=== PATIENT | female | born 1960 | race Caucasian/White ===

== ENCOUNTER → 2016-05-23 | Day surgery (SDC) | payer BC, OTHER ==
[~2016-05-23] VITALS: Ht 152.4 cm; Wt 59.9 kg
[~2016-05-23] MED LIST: ASPIRIN 81 MG CHEW (CHILDREN'S ASA) PO ONE; HEParin (CATH LAB) 1,000 ML IV ONE; HEParin (CATH LAB) 2,000 ML IV ONE; HEParin 1000 UNIT/ML (10ML VIAL) FOR BOLUS IV PRN; HEParin 1000 UNIT/ML (10ML VIAL) FOR BOLUS ONE; HEParin DRIP 25000 UNIT/500ML 500 ML IV ONE; HEParin DRIP 25000 UNIT/500ML 500 ML IV SCH; LIDOCAINE 1% INJ 20 ML (XYLOCAINE) VIAL ONE; MIDAZOLAM 5 MG/5 ML (VERSED) VIAL ONE; NS IV 1000 ML 1,000 ML IV SCH; NS IV 1000 ML 1,000 ML ONE; PATIENT MAY USE OWN MEDS, ALL PO SCH; RT-ALBUTEROL SULF 2.5 MG/3 ML PRE-MIX VIAL INH STA; RT-ALBUTEROL/IPRATROPIUM 3 ML (DUONEB) VIAL INH ONE; RX-NITROGLYCERIN 0.4 MG TAB BTL 25'S SL ONE; fentaNYL INJECTION 100 MCG/2 ML AMP ONE
[2016-05-23 15:14] LABS: BASOPHILS % (AUTO) 0 % (0-10); EOSINOPHILS % (AUTO) 0 % (0-10); LYMPHOCYTES # (AUTO) 1.9 X 10^3 (1.0-4.0); LYMPHOCYTES % (AUTO) 9 % (12-44); MEAN CORPUSCULAR HEMOGLOBIN 31 PG (25-34); MEAN CORPUSCULAR HGB CONC 33 G/DL (32-36); MEAN CORPUSCULAR VOLUME 93 FL (80-99); MEAN PLATELET VOLUME 10.3 FL (7.4-10.4); MONOCYTES # (AUTO) 0.7 X 10^3 (0.0-1.0); MONOCYTES % (AUTO) 3 % (0-12); NEUTROPHILS # (AUTO) 19.3 X 10^3 (1.8-7.8); NEUTROPHILS % (AUTO) 88 % (42-75); PLATELET COUNT 383 10^3/uL (130-400); RED BLOOD COUNT 4.38 10^6/uL (4.35-5.85)
[2016-05-23 15:18] LABS: INR 0.9 (0.8-1.4)
[2016-05-23 15:26] LABS: ALANINE AMINOTRANSFERASE 20 U/L (0-55); ALBUMIN 4.6 G/DL (3.2-4.5); ANION GAP 11 MMOL/L (5-14); ASPARTATE AMINO TRANSFERASE 20 U/L (5-34); BILIRUBIN,TOTAL 0.3 MG/DL (0.1-1.0); BLOOD UREA NITROGEN 16 MG/DL (7-18); BUN/CREATININE RATIO 18; CALCIUM 9.3 MG/DL (8.5-10.1); CARBON DIOXIDE 23 MMOL/L (21-32); CHLORIDE 103 MMOL/L (98-107); GFR ESTIMATED > 60; GLUCOSE 110 MG/DL (70-105); POTASSIUM 3.8 MMOL/L (3.6-5.0); SODIUM 137 MMOL/L (135-145); TOTAL PROTEIN 7.1 G/DL (6.4-8.2)
[2016-05-23 15:31] LABS: BAND NEUTROPHILS 1 %; BASOPHILS % (MANUAL) 0 %; EOSINOPHILS % (MANUAL) 0 %; LYMPHOCYTES % (MANUAL) 21 %; NEUTROPHILS % (MANUAL) 76 %
[2016-05-23 15:33] LABS: MYOGLOBIN SERUM 136.8 NG/ML (10.0-92.0)
--- NOTE | 2016-05-23 15:33 | ED Chest Pain ---
General Stated Complaint: CHEST/LEFT ARM PAIN Source: patient Exam Limitations: no limitations (DAWN CARTER MD) History of Present Illness Time seen by provider: 14:57 Initial Comments Here with acute onset of chest pain about 1 p.m. today after being exposed to a room that had been cleaned with chlorine bleach. She states that this most quite intense. She had the chest pain that started after some breathing difficulty. She did turn inhaler and that helped a little bit but she had residual persistent chest pain with some left arm pain. She does have history of asthma and bronchitis and currently is on steroids. She is also on Biaxin. She has no local physician. She is normally seen at [place] for cardiology or in [place] for rheumatology. She does have history of left subclavian artery blockage that had to have a balloon repair. She does have family history of heart disease with father having heart attacks in his mid 50s. She does smoke cigarettes. Timing/Duration: 1-3 hours Severity/Quality: moderate Location: central Radiation: arms, shoulders Prior CP/Workup: no prior cardiac workup ASA po MUSEUM EDUCATOR: No NTG SL MUSEUM EDUCATOR: No Associated Symptoms: No abdominal pain, No back pain, No nausea/vomiting, shortness of breathNo weakness (DAWN CARTER MD) Allergies and Home Medications Allergies Coded Allergies: codeine (Verified Allergy, Unknown, 05/23/16) Review of Systems Constitutional: see HPINo chills, No fever EENTM: See HPI Respiratory: See HPI Cough Shortness of Air Wheezing Cardiovascular: See HPI Chest Pain Gastrointestinal: See HPIDenies Abdominal Pain, Denies Nausea, Denies Vomiting Genitourinary: No Symptoms Reported Musculoskeletal: see HPINo joint pain, muscle pain Skin: lesions rash Psychiatric/Neurological: No Symptoms Reported (DAWN CARTER MD) All Other Systems Reviewed Negative Unless Noted: Yes (DAWN CARTER MD) Past Rwnftio-Zpojmj-Cxqduo Hx Patient Social History Alcohol Use: Occasionally Uses Recreational Drug Use: No Smoking Status: Current Everyday Smoker (DAWN CARTER MD) Surgeries HX Surgeries: Yes Surgeries: Vascular Surgery (DAWN CARTER MD) Respiratory Hx Respiratory Disorders: Yes Respiratory Disorders: Asthma (DAWN CARTER MD) Cardiovascular Hx Cardiac Disorders: Yes Cardiac Disorders: Hypertension (DAWN CARTER MD) Neurological Hx Neurological Disorders: No (DAWN CARTER MD) Genitourinary Hx Genitourinary Disorders: No (DAWN CARTER MD) Gastrointestinal Hx Gastrointestinal Disorders: No (DAWN CARTER MD) Musculoskeletal Hx Musculoskeletal Disorders: Yes Musculoskeletal Disorders: Fibromyalgia (DAWN CARTER MD) Endocrine Hx Endocrine Disorders: No (DAWN CARTER MD) HEENT HX ENT Disorders: No (DAWN CARTER MD) Reviewed Nursing Assessment Reviewed/Agree w Nursing PMH: Yes (DAWN CARTER MD) Family Medical History Significant Family History: Heart Disease, CAD Under 55 Years Old, Hypertension (DAWN CARTER MD) Physical Exam Vital Signs Vital Sign - Last 12Hours 05/23/16 14:40 Temp 97.9 Pulse 99 Resp 18 B/P 170/85 Pulse Ox 99 O2 Delivery Room Air (NAT HOOK MD) Vital Signs Capillary Refill : (DAWN CARTER MD) General Appearance: No Apparent Distress WD/WN HEENT: PERRL/EOMI Pharynx Normal Neck: Non Tender Supple Respiratory: No Respiratory Distress Expiration Wheezing Cardiovascular: Regular Rate, Rhythm No Murmur Gastrointestinal: Non Tender Soft Extremity: Normal Range of Motion Non Tender No Calf Tenderness Neurologic/Psychiatric: Alert Oriented x3 No Motor/Sensory Deficits Skin: Normal Color Warm/Dry (DAWN CARTER MD) Progress/Results/Core Measures Results/Orders Lab Results Laboratory Tests Test 05/23/16 14:55 05/23/16 17:35 Range/Units Activated Partial Thromboplast Time 26 24-35 SEC Alanine Aminotransferase (ALT/SGPT) 20 0-55 U/L Albumin 4.6 H 3.2-4.5 G/DL Alkaline Phosphatase 70 40-136 U/L Anion Gap 11 5-14 MMOL/L Aspartate Amino Transf (AST/SGOT) 20 5-34 U/L BUN/Creatinine Ratio 18 Band Neutrophils 1 % Basophils # (Auto) 0.0 0.0-0.1 10^3/uL Basophils % (Manual) 0 % Basophils (%) (Auto) 0 0-10 % Blood Morphology Comment NORMAL Blood Urea Nitrogen 16 7-18 MG/DL Calcium Level 9.3 8.5-10.1 MG/DL Carbon Dioxide Level 23 21-32 MMOL/L Chloride Level 103 98-107 MMOL/L Creatinine 0.90 0.60-1.30 MG/DL D-Dimer 0.41 0.00-0.49 UG/ML Eosinophils # (Auto) 0.0 0.0-0.3 10^3/uL Eosinophils % (Manual) 0 % Eosinophils (%) (Auto) 0 0-10 % Estimat Glomerular Filtration Rate > 60 Glucose Level 110 H 70-105 MG/DL Hematocrit 41 35-52 % Hemoglobin 13.6 11.5-16.0 G/DL INR Comment 0.9 0.8-1.4 Lymphocytes # (Auto) 1.9 1.0-4.0 X 10^3 Lymphocytes % (Manual) 21 % Lymphocytes (%) (Auto) 9 L 12-44 % Magnesium Level 2.0 1.8-2.4 MG/DL Mean Corpuscular Hemoglobin 31 25-34 PG Mean Corpuscular Hemoglobin Concent 33 32-36 G/DL Mean Corpuscular Volume 93 80-99 FL Mean Platelet Volume 10.3 7.4-10.4 FL Monocytes # (Auto) 0.7 0.0-1.0 X 10^3 Monocytes % (Manual) 2 % Monocytes (%) (Auto) 3 0-12 % Myoglobin 136.8 H 692.4 H 10.0-92.0 NG/ML Neutrophils # (Auto) 19.3 H 1.8-7.8 X 10^3 Neutrophils % (Manual) 76 % Neutrophils (%) (Auto) 88 H 42-75 % Platelet Count 383 130-400 10^3/uL Potassium Level 3.8 3.6-5.0 MMOL/L Prothrombin Time 12.0 L 12.2-14.7 SEC Red Blood Count 4.38 4.35-5.85 10^6/uL Red Cell Distribution Width 13.0 10.0-14.5 % Sodium Level 137 135-145 MMOL/L Total Bilirubin 0.3 0.1-1.0 MG/DL Total Protein 7.1 6.4-8.2 G/DL Troponin I < 0.30 1.85 *H <0.30 NG/ML White Blood Count 22.0 H 4.3-11.0 10^3/uL (NAT HOOK MD) Medications Given in ED (NAT HOOK MD) Vital Signs/I&O Vital Sign - Last 12Hours 05/23/16 05/23/16 05/23/16 05/23/16 14:40 14:40 15:22 16:13 Temp 97.9 Pulse 99 Resp 18 B/P 170/85 Pulse Ox 99 98 96 O2 Delivery Room Air (NAT HOOK MD) Progress Note : Progress Note Seen and evaluated. IV, labs, EKG and chest x-ray ordered. ASA and nitroglycerin sublingual ordered. Duo neb ordered. Patient noted to have O2 sat 88 percent after breathing treatments. Repeat albuterol neb 3 ordered. Monitor patient. Patient does have elevated white count but is on steroids and this is certainly contributing. 1730: Patient is pain-free and would like to go home. We talked about different options including repeat troponin, myoglobin and EKG due to slightly elevated myoglobin earlier and her cardiac history. Patient did agree to repeat testing. 1815: Troponin noted be elevated at 1.8 currently and patient does have minimal ST depression noted on inferior leads. 1820: Case discussed with Dr. Kelly. He would like to take patient to [facility]. [facility] team is notified. 1825: Dr. Kelly evaluating patient in the ER. Patient agrees to heart catheter and admission. Non-ST elevation IN noted. 1845: Patient's family was apparently asking her to go over to [place] because they were unsure about capabilities here. I did discuss with her about different options and my concerns about delaying intervention due to transfer time. Patient decided that she would prefer to stay here for heart catheter, which I believe is in her best interest. (DAWN CARTER MD) Progress Note : Time: 19:41 Progress Note I was called to the patient's room after physician shift change as patient was refusing to go to [facility] and requested transfer to [place]. I visited with the patient and her family and communicated the risks and benefits of transfer. Patient's in particular was concerned about the availability of a cardiothoracic surgeon in the event of complications during heart catheter. I expressed concern that a transfer would delay further evaluation and treatment that could be performed at this facility by heart catheter. After explanation of risks and benefits, patient and family expressed the desire to stay at this facility for catheterization. Patient and family were reassured that transfer to a facility with cardiothoracic surgery capabilities would be sought if findings necessitated transfer during cardiac catheter. [facility] team had just left the facility due to patient refusal. [facility] team was called back in and patient should depart for [facility] shortly. Dr. Kelly was notified and is also returning for cardiac catheter. (NAT HOOK MD) ECG Initial ECG Impression Date: May 23, 2016 Initial ECG Impression Time: 14:44 Initial ECG Rate: 93 Initial ECG Rhythm: Normal Sinus Initial ECG Comparisson: No Previous ECG Available Comment Sinus rhythm with normal axis. No evidence of ST elevation IN. No previous available for comparison. Interpreted by me. EKG : EKG Time: 17:47 Rate: 111 Rhythm: S.Tach Comment Sinus tachycardia with minimal ST depression in the inferior leads that is changed from previous of earlier today. (DAWN CARTER MD) Departure Communication Time/Spoke to Admitting Phy: 18:20 (DAWN CARTER MD) Impression Impression: Primary Impression: Non-ST elevation IN (NSTEMI) Disposition: 09 ADMITTED INPATIENT Condition: Stable Decision to Admit Reason: Admit from ER (General) Decision to Admit/Date: May 23, 2016 Time/Decision to Admit Time: 18:20 (DAWN CARTER MD) Departure-Patient Inst. Referrals: NO,LOCAL PHYSICIAN (PCP/Family) Primary Care Physician DAWN CARTER MD May 23, 2016 15:33 ANT HOOK MD May 23, 2016 19:44 Departure Communication Time/Spoke to Admitting Phy: 18:20 (DAWN CARTER MD) Impression Impression: Primary Impression: Non-ST elevation IN (NSTEMI) Disposition: 09 ADMITTED INPATIENT Condition: Stable Decision to Admit Reason: Admit from ER (General) Decision to Admit/Date: May 23, 2016 Time/Decision to Admit Time: 18:20 (DAWN CARTER MD) Departure-Patient Inst. Referrals: NO,LOCAL PHYSICIAN (PCP/Family) Primary Care Physician DAWN CARTER MD May 23, 2016 15:33 NAT HOOK MD May 23, 2016 19:44
--- NOTE | 2016-05-23 16:37 | Diagnostic Imaging Report ---
EXAMINATION: Portable upright radiograph of the chest. INDICATION: Chest pain. FINDINGS: The lungs are hyperinflated but clear. The heart size is normal. No effusion or pneumothorax. The mediastinum and jim appear unremarkable. IMPRESSION: Hyperinflated clear lungs. Dictated by: Dictated on workstation # [id number]
[2016-05-23 18:08] LABS: MYOGLOBIN SERUM 692.4 NG/ML (10.0-92.0)
[2016-05-23 18:13] LABS: TROPONIN I 1.85 NG/ML (<0.30)
[2016-05-23 19:05] VITALS: BP 138/77
--- NOTE | 2016-05-23 19:07 | Cardiac Procedure Note-CS/ASA ---
Pre-Procedure Note Pre-Op Procedure Note H&P Reviewed The H&P was reviewed, patient examined and no changes noted. Date H&P Reviewed: May 23, 2016 Time H&P Reviewed: 19:07 Conscious Sedation Pre-Proced Time Reviewed: :07 ASA Class: 3 Airway Mallampati Classification: ([place] appropriate class) I. II. III, IV Lungs Heart ASA score ASA 1: a normal healthy patient ASA 2: a patient with a mild systemic disease (mid diabetes, controlled hypertension, obesity x ASA 3: a patient with a severe systemic disease that limits activity (angina , COPD, prior Myocardial infarction) ASA 4: a patient with an incapacitating disease that is a constant threat to life (CHF, renal failure) ASA 5: a moribund patient not expected to survive 24 hrs. (ruptured aneurysm) ASA 6: a declared brain patient whose organs are being harvested. For emergent operations, add the letter E after the classification Grade 3 Sedation Plan: Analgesia, Amnesia, Plan communicated to team members, Discussed options with patient/fam, Discussed risks with patient/fam Note The patient is an appropriate candidate to undergo the planned procedure, sedation, and anesthesia. The patient immediately re-assessed prior to indication. HAJA WARNER MD May 23, 2016 19:07
--- NOTE | 2016-05-23 19:07 | Cardiology History & Physical ---
HPI-Cardiology Cardiology Consultation Date of Consultation 05/23/16 Date of Admission Indication: chest pain HPI 55-year-old lady with history of peripheral arterial disease, had history of left subclavian stenosis. Patient came in to the emergency room with chest pain , she was at work exposed to some fumes of bleach. On her way home she started having some chest pressure felt tightness on the left side of her chest came into the emergency room and given sublingual nitroglycerin, she was short of breath with slight hypoxemia, given breathing treatment. She was kept for 2 hours for monitoring. Her repeat troponin was elevated. Upper my evaluation she was feeling better, reporting improvement in her shortness of breath and chest pain. PMH-Cardiology Surgeries HX Surgeries: Yes Respiratory Hx Respiratory Disorders: Yes Cardiovascular Hx Cardiovascular Disorders: Yes Neurological Hx Neurological Disorders: No Genitourinary Hx Genitourinary Disorders: No Gastrointestinal Hx Gastrointestinal Disorders: No Musculoskeletal Hx Musculoskeletal Disorders: Yes Musculoskeletal Disorders: Fibromyalgia Endocrine Hx Endocrine Disorders: No HEENT HX ENT Disorders: No Social History Patient Social History Marrital Status: Employed/Student: employed Alcohol Use: Occasionally Uses Recreational Drug Use: No Smoking: Current every day smoker Recent Foreign Travel: No Contact w/other who traveled: No Recent Infectious Disease Expo: No Family Hx Significant Family History: Heart Disease, CAD Under 55 Years Old, Hypertension Other Strong family history of heart disease ROS-Cardiology Review of Systems General: No Chills, No Night Sweats, No Fatigue, No Malaise, No Appetite HEENT: No Head Aches, No Visual Changes, No Eye Pain, No Ear Pain, No Dysphasia , No Sinus Congestion, No Post Nasal Drip, No Sore Throat Pulmonary: DyspneaNo Cough, No Pleuritic Chest Pain Cardiovascular: : Chest Pain: PalpitationsNo: Edema, Lt Headedness, Orthopnea, Paroxysmal Noc. Dyspnea Gastrointestinal: No: Abdominal Pain, Constipation, Diarrhea, Hematochezia, Melena, Nausea, Vomiting Genitourinary: No Dysuria, No Frequency, No Incontinence, No Hematuria, No Retention Musculoskeletal: No: arm pain, back pain, foot pain, hand pain, leg pain, neck pain, shoulder pain Neurological: No: Change in speech, Confusion, Incoordination, Numbness, Seizures, Weakness Home Medications & Allergies Allergies: Coded Allergies: codeine (Verified Allergy, Unknown, 05/23/16) Home Medication List Reviewed: Yes Exam-Cardiology Vital Signs Vital Signs Date Time Temp Pulse Resp B/P Pulse Ox O2 Delivery O2 Flow Rate FiO2 05/23/16 16:13 96 05/23/16 14:40 97.9 99 18 170/85 05/23/16 14:40 Room Air Exam General Appearance: Alert, Oriented X3, Cooperative, No Acute Distress HEENT: Atraumatic, PERRLA Respiratory: Clear to Auscultation, Normal Air Movement Cardiovascular: Regular Rate, Normal S1, Normal S2, No Murmurs Abdominal: Normal Bowel Sounds, Soft, No Tenderness, No Hepatosplenomegaly, No Masses Extremities: No Clubbing, No Cyanosis, No Edema, Normal Pulses, No Tenderness/ Swelling Skin: Other (erythematous rash on the upper dentures.) Neuro: Normal Gait, Normal Speech, Strength at 5/5 X4 Ext, Normal Tone, Sensation Intact Psych/Mental Status: Mental Status NL, Mood NL Results Labs Labs Laboratory Tests 05/23/16 14:55: Activated Partial Thromboplast Time 26, Alanine Aminotransferase (ALT/SGPT) 20, Albumin 4.6H, Alkaline Phosphatase 70, Anion Gap 11, Aspartate Amino Transf (AST /SGOT) 20, BUN/Creatinine Ratio 18, Band Neutrophils 1, Basophils # (Auto) 0.0, Basophils % (Manual) 0, Basophils (%) (Auto) 0, Blood Morphology Comment NORMAL , Blood Urea Nitrogen 16, Calcium Level 9.3, Carbon Dioxide Level 23, Chloride Level 103, Creatinine 0.90, D-Dimer 0.41, Eosinophils # (Auto) 0.0, Eosinophils % (Manual) 0, Eosinophils (%) (Auto) 0, Estimat Glomerular Filtration Rate > 60 , Glucose Level 110H, Hematocrit 41, Hemoglobin 13.6, INR Comment 0.9, Lymphocytes # (Auto) 1.9, Lymphocytes % (Manual) 21, Lymphocytes (%) (Auto) 9L, Magnesium Level 2.0, Mean Corpuscular Hemoglobin 31, Mean Corpuscular Hemoglobin Concent 33, Mean Corpuscular Volume 93, Mean Platelet Volume 10.3, Monocytes # (Auto) 0.7, Monocytes % (Manual) 2, Monocytes (%) (Auto) 3, Myoglobin 136.8H, Neutrophils # (Auto) 19.3H, Neutrophils % (Manual) 76, Neutrophils (%) (Auto) 88H, Platelet Count 383, Potassium Level 3.8, Prothrombin Time 12.0L, Red Blood Count 4.38, Red Cell Distribution Width 13.0, Sodium Level 137, Total Bilirubin 0.3, Total Protein 7.1, Troponin I < 0.30, White Blood Count 22.0H 05/23/16 17:35: Myoglobin 692.4H, Troponin I 1.85*H A/P-Cardiology Admission Diagnosis Anterior chest wall pain Non-ST elevation myocardial infarction Shortness of breath Hypertension Leukocytosis Assessment/Plan Chest pain, non-ST elevation myocardial infarction, elevated troponin and myoglobin, EKG did not show any acute changes, has subtle ST depression. I discussed with her the management part of his cardiac catheterization possible PTCA. Procedure was explained in length to the patient all pros and cons were explained. Shortness of breath, bronchial asthma, received bronchodilator, she has significant leukocytosis. She has been on steroids. Tobaccoism, patient is an active smoker. Educated on smoking cessation Hypertension, I will restart home medication monitor blood pressure Leukocytosis, patient has been treated as an outpatient for upper respiratory tract infection, she has been maintained on steroids and Biaxin. Questionable hyperlipidemia, I will evaluate lipid profile Skin rash, patient has been evaluated by Dr. Rocky Jeffrey. History of rheumatoid arthritis. Osteoarthritis. Followed and managed by Dr. Rocky Jeffrey. Peripheral arterial disease, history of left subclavian artery stenosis status post angioplasty done about 4-5 years ago Addendum, patient underwent cardiac catheterization which showed severe ostial left main coronary artery stenosis. She was started on heparin drip. Arrangement for emergency transfer to [facility] for evaluation for CABG. Clinical Quality Measures AMI/AHF: ASA po Prior to arrival: HAJA Herrera MD May 23, 2016 19:07
--- NOTE | 2016-05-26 07:22 | DISCHARGE SUMMARY ---
PROCEDURE PHYSICIAN: HAJA WARNER DATE OF PROCEDURE: 05/23/2016 BRIEF HISTORY: Mrs. Comer is a 55-year-old lady with history of peripheral arterial disease subclavian stenosis. She was admitted through the emergency room with acute chest pain, had minimal nondiagnostic EKG changes. Has slight ST depression noted in the anterolateral leads. Her second set of enzymes were elevated. The patient was offered to be admitted and proceed with emergency cardiac catheterization. Initially she agreed on the procedure after calling the prosthetics lab technician team. The patient declined and requested to be transferred to [facility]. Upon arranging for the transfer, the patient changed her mind and she decided with her family to stay and have the cardiac catheterization procedure done. We called the prosthetics lab technician team again. I returned to the hospital and visited with the patient and her family offered her transfer versus cardiac catheterization and she elected to have the procedure done in [place]. PROCEDURE NOTE: After explaining the procedure to the patient and her family, all pros and cons were explained. All questions were answered. The patient signed a consent, then she was placed on the cardiac catheterization laboratory. The right groin was prepped in a sterile fashion. Local anesthesia applied to right groin. 6-Kazakh sheath was placed in the right femoral artery. Trevor left was advanced to the left coronary system with each injection to the left coronary system there was dampening of the pressure and no flow in the left coronary system. I did most of the injection with nonselective, then I used 5-Kazakh catheter and attempted again to reevaluate the left coronary system. Then I used Trevor right catheter for the right coronary system. Pigtail catheter advanced to the left ventricular cavity. Left ventriculogram was done. Pullback LV to aorta was done. The aortic arch angiogram was done. Evaluation of the subclavian artery. At the end of the procedure, sheath was removed. Mynx device deployed. Hemostasis achieved. FINDINGS: HEMODYNAMICS: LV pressure is 142/30, end-diastolic pressure of 30, aortic pressure 140/67, mean of 100. ANATOMY: 1. Left main coronary artery has ostial 80 to 90% stenosis. 2. Left anterior descending artery is moderate in size with mild disease at the midportion, nonobstructive disease. 3. Left circumflex artery is moderate in size with mild disease, nonobstructive disease. 4. The right coronary artery is dominant artery with no significant obstructive disease. 5. Left ventriculogram was done in the right anterior oblique position. The left ventricle is normal in size. Systolic function is preserved. Estimated ejection fraction 60%. 6. Aortic arch angiogram: Aortic arch evaluation showed atherosclerotic plaques in the aortic arch. Origin of the subclavian artery, innominate artery and carotid arteries appeared to be normal. No significant obstructive disease. Mild atherosclerotic plaques were noted in the left carotid. CONCLUSION: 1. Severe ostial left main coronary artery stenosis. 2. Normal left ventricular size and systolic function. Estimated ejection fraction 60%. 3. Elevated left ventricular end-diastolic pressure. 4. Normal aortic arch with hypertensive changes, slight aneurysmal dilatation. Plaques noted at the origin of the left carotid artery. DISCUSSION AND RECOMMENDATIONS: The patient will be transferred for evaluation for bypass surgery. I did discuss it with Dr. Perez who graciously accepted the patient. FINAL DIAGNOSIS: 1. Non-ST elevation myocardial infarction. 2. Coronary artery disease. 3. Tobaccoism. 4. Upper respiratory tract infection. 5. Osteoarthritis. 6. Rheumatoid arthritis. 7. Skin rash Job ID: [id number] Dictated Date: 05/23/2016 20:41:38 Crystallizer Operator Date: 05/26/2016 07:19:28/shawnee
== END | disposition home or self-care (01) ==
LOC: ER 14:39 → CATH 19:05
PROVIDERS: ATTEND Internal Medicine Cardiovascular Disease
DX: I21.4 Non-ST elevation (NSTEMI) myocardial infarction (principal); I25.10 Atherosclerotic heart disease of native coronary artery without angina pectoris; J06.9 Acute upper respiratory infection, unspecified; M06.9 Rheumatoid arthritis, unspecified; R21 Rash and other nonspecific skin eruption; Z72.0 Tobacco use
CPT/HCPCS: 36221; 36415; 71010; 80053; 83735; 83874; 84484; 85007; 85027; 85379; 85610; 85730; 93005; 93041; 93458; 94640

== ENCOUNTER 2016-08-02 10:46 | Outpatient (RCR) | payer BC | END 2016-08-14 14:23 | disposition home or self-care (01) | LOC: CR 10:46 | PROVIDERS: ATTEND Internal Medicine Cardiovascular Disease | DX: Z48.812 Encounter for surgical aftercare following surgery on the circulatory system (principal); Z95.1 Presence of aortocoronary bypass graft | CPT/HCPCS: 93798 ==